=== PATIENT | male | born 1980 ===

== ENCOUNTER 2017-10-17 00:16 | Emergency (ER) | payer SELFPAY ==
[2017-10-17] MEDS ORDERED: Oxycodone/Acetaminophen 5/325 mg Tab PO STA ×2 (02:34→06:53)
[2017-10-17] MEDS ORDERED: Oxycodone/Acetaminophen 5/325 mg Tab ONE ×2 (02:39→06:58)
--- NOTE | 2017-10-17 02:52 | C.PDOC ---
History Of Present Illness 37 year old male presents to the ED for evaluation of right eye pain and FB sensation for the past 2 weeks. 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 Patient irrigated the eye, was sent to the general clinic where he was given antibiotic eye drops. Patient states he used those drops with no relief to his symptoms. 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 Patient went to see the driver education instructor in [place] and was prescribed antibiotic cream. Patient still c/o eye pain that is no radiating towards his head associated with photophobia. Patient is wearing sunglasses due to the photophobia. Patient denies injury, fall, trauma, nausea, dizziness, vomit, LOC, weakness, numbness. Time Seen by Provider: 10/17/17 00:47 Chief Complaint (Nursing): Eye Problem History Per: Patient History/Exam Limitations: no limitations Onset/Duration Of Symptoms: Other (2 weeks) Current Symptoms Are (Timing): Still Present Quality: "Pain" Associated Symptoms: Pain, FB Sensation Recent travel outside of the [place]: No Additional History Per: Patient Past Medical History Reviewed: Historical Data, Nursing Documentation, Vital Signs Vital Signs: Last Vital Signs Temp 98.8 F 10/17/17 05:24 Pulse 68 10/17/17 05:24 Resp 16 10/17/17 05:24 BP 127/82 10/17/17 05:24 Pulse Ox 99 10/17/17 05:43 - Medical History PMH: No Chronic Diseases Surgical History: No Surg Hx Family History: States: Unknown Family Hx - Social History Hx Alcohol Use: No Hx Substance Use: No - Immunization History Hx Tetanus Toxoid Vaccination: No Hx Influenza Vaccination: No Hx Pneumococcal Vaccination: No Review Of Systems Constitutional: Negative for: Fever, Chills Eyes: Positive for: Pain Cardiovascular: Negative for: Chest Pain, Palpitations Respiratory: Negative for: Cough, Shortness of Breath Gastrointestinal: Negative for: Nausea, Vomiting Neurological: Positive for: Headache. Negative for: Weakness, Numbness, Dizziness Physical Exam - Physical Exam Appears: Non-toxic, No Acute Distress Skin: Normal Color, Warm, Dry Head: Atraumatic, Normacephalic Eye(s): right: Other (mild erythema, lateral side tenderness to palpation, ), left: Normal Inspection Oral Mucosa: Moist Neck: Normal ROM, No Midline Cervical Tenderness, Supple Chest: Symmetrical Cardiovascular: Rhythm Regular, No Murmur Respiratory: Normal Breath Sounds, No Rales, No Rhonchi, No Wheezing Extremity: Normal ROM, No Tenderness, No Swelling Neurological/Psych: Oriented x3, Normal Speech Gait: Steady ED Course And Treatment O2 Sat by Pulse Oximetry: 99 (ON RA) Pulse Ox Interpretation: Normal - CT Scan/US CT orbits Other Rad Studies (CT/US): Read By Radiologist, Radiology Report Reviewed CT/US Interpretation: Name: SENIA NAYAK Age: 37Years M Date: 2017. Requesting Physician: Francia Nielson PA-C : 1980. [facility] Procedure Ordered As Accession Number of. Images. CT. MAXILLOFACIAL/ SINUSES. WO. CT ORBITS FACIALS W O. CONTRAST. [id number]. J. 739. 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 EXAM: CT Maxillofacial and mandible Without Intravenous Contrast. 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 TECHNIQUE: Axial computed tomography images of the face and mandible without intravenous contrast. All CT. scans at this facility use at least one of these dose optimization techniques: automated exposure. control; mA and/or kV adjustment per patient size (includes targeted exams where dose is matched to. clinical indication); or iterative reconstruction.Sagittal , axial and coronal MPR reformatted images are. submitted. Axial images are submitted in soft tissue and bone windows. CT maxillofacial with. mandible. Coronal and sagittal reformatted images were created and reviewed. COMPARISON: No relevant prior studies available. FINDINGS: Bones/joints: No acute fracture. Soft tissues: Unremarkable. Lymph nodes: Submental and submandibular lymph nodes. Orbits: The globe and lens are intact. Sinuses: Moderate patchy sinus disease. No air-fluid levels. Other findings: There is obliteration of bilateral ostiomeatal units with mucosal thickening and/or. debris. IMPRESSION: No acute findings. Thank you for allowing us to participate in the care of your patient. АНДРЕЙ NAYAKGO | Preliminary Radiology. Report. CONFIDENTIALITY STATEMENT. This report is intended only for the use of the referring physician, and only in accordance with law, If you received this in error, call [phone]. Page 2 of 2. Dictated and Authenticated by: Yue Burrows MD. 10/17/2017 5:34 AM Eastern Time ([place] & [place]) Progress Note: Plan: - CT scan orbits. - Percocet 1 tab PO. Fluorescein strip was used with no uptake to right eye, no FB seen. Visual acuity was recorded by the nurse. Patient is stable to be d/c home with [employer] f/ u within 1-2 days without fail. Disposition - Disposition Referrals: Joseph Slaughter [Staff Provider] - Disposition: HOME/ ROUTINE Disposition Time: 05:40 Condition: STABLE Additional Instructions: Follow up with [employer] within 1-2 days without fail. Return to ED immediately if feel worse. Continue using antibiotic cream as previously instructed. Instructions: How to Use Eye Ointment Forms: [employer] (Kazakh) Print Language: SLOVENIAN - Clinical Impression Clinical Impression: Pain in eye - PA / PRESENTATION SPECIALIST / Resident Statement MD/DO has reviewed & agrees with the documentation as recorded. - Scribe Statement The provider has reviewed the documentation as recorded by the Scribe Charles Guillory All medical record entries made by the Scribe were at my direction and personally dictated by me. I have reviewed the chart and agree that the record accurately reflects my personal performance of the history, physical exam, medical decision making, and the department course for this patient. I have also personally directed, reviewed, and agree with the discharge instructions and disposition.
[2017-10-17 03:07] VITALS: RESP 16
[2017-10-17 05:26] VITALS: BP 127/82; PULSE 68; TEMP 98.8; O2SAT 99
--- NOTE | 2017-10-17 09:08 | CT ---
PROCEDURE: CT ORBITS WITHOUT CONTRAST. 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 TECHNIQUE: Axial CT images of the orbits were obtained. Coronal and sagittal reformats were generated. Radiation dose: Total exam DLP = 811.77 mGy-cm. This CT exam was performed using one or more of the following dose reduction techniques: Automated exposure control, adjustment of the mA and/or kV according to patient size, and/or use of iterative reconstruction technique. FINDINGS: RIGHT ORBIT: RIGHT BONY ORBIT: Normal. RIGHT INTRAORBITAL STRUCTURES: Globe: Normal. No evidence of radiopaque foreign body. Extraocular muscles: Normal. Post septal space: Normal. Optic Nerve: Normal. Lacrimal Apparatus: Normal. RIGHT PRESEPTAL SOFT TISSUES: Normal. LEFT ORBIT: LEFT BONY ORBIT: Normal. LEFT INTRAORBITAL STRUCTURES: Globe: Normal. Extraocular muscles: Normal. Post septal space: Normal Optic Nerve: Normal. . Lacrimal Apparatus: Normal. LEFT PRESEPTAL SOFT TISSUES: Normal. OTHER: There is severe polypoid mucosal thickening in the maxillary sinuses, moderate mucosal thickening in the ethmoid air cells and sphenoid sinus. IMPRESSION: No acute findings. Specifically, no evidence of radiopaque foreign body in the right globe. Chronic maxillary sphenoid and ethmoid sinusitis, worse in the maxillary sinuses.
== END 2017-10-17 07:02 | disposition home or self-care (01) ==
LOC: C.ER 00:16
DX: H57.11 Ocular pain, right eye (principal)